=== PATIENT | male | born 2005 | race Two or more races ===

== ENCOUNTER 2024-03-06 00:30 | Emergency (ER) | payer MEDICAID ==
[~2024-03-06] VITALS: Ht 170.2 cm; Wt 74.0 kg
[2024-03-06 00:35] VITALS: BP 143/73; PULSE 106; RESP 18; TEMP 98.3; O2SAT 98
[2024-03-06] MEDS ORDERED: FLUT1SPR5 (02:36)
[2024-03-06] MEDS ORDERED: ALBUAER3 IN (02:36)
== END 2024-03-06 03:00 | disposition home or self-care (01) ==
LOC: ER 00:30
DX: J45.909 Unspecified asthma, uncomplicated (principal); R09.82 Postnasal drip; F17.210 Nicotine dependence, cigarettes, uncomplicated
CPT/HCPCS: 71045